=== PATIENT | male | born 1965 | race Caucasian/White ===

== ENCOUNTER 2019-05-02 08:00 | Inpatient (IN) | payer MEDICAID ==
[~2019-05-02] VITALS: Ht 177.8 cm; Wt 83.9 kg
--- NOTE | 2019-05-02 08:15 | NUR ---
Bib by darcy from home (called 911 himself) for worsening sob. EMS reports patient found smoking and with empty 1/2 gallon of hard liquor (Which he drank in the last few hours) ROOM AIR SAT OF 84% - EMS STARTED DUONEB AND PLACED PIV, FSBS 145 ON ARRIVAL REQUIRING 5L NC FOR POX > 92% BREATH SOUNDS COARSE BUT AUDIBLE TO BASES, B/P 80/56
[2019-05-02] MEDS ORDERED: SODIUM CHLORIDE 0.9% 1,000ML IVBOLUS ONE (08:30)
[2019-05-02 08:32] LABS: ALBUMIN 3.5 g/dL (3.4-5.0); ANION GAP 14 mmol/L (5-15); CALCIUM 8.7 mg/dL (8.5-10.1); CHLORIDE 85 mmol/L (98-107); CREATININE 1.47 mg/dL (0.7-1.3)
[2019-05-02 08:36] LABS: BASOPHILS # (AUTO) 0.04 x10^3/uL (0-0.1); BASOPHILS % (AUTO) 1 % (0-1); EOSINOPHILS # (AUTO) 0.02 x10^3/uL (0-0.4); EOSINOPHILS % (AUTO) 0 % (1-7); LYMPHOCYTES # (AUTO) 2.21 x10^3/uL (1-3.4); LYMPHOCYTES % (AUTO) 33 % (22-44); MD NO; MEAN CORPUSCULAR HEMOGLOBIN 33.9 pg (27.5-34.5); MEAN CORPUSCULAR HGB CONC 34.1 g/dL (33.2-36.2); MEAN CORPUSCULAR VOLUME 99.3 fL (81-97); MEAN PLATELET VOLUME 9.5 fL (7.4-10.4); MONOCYTES # (AUTO) 0.63 x10^3/uL (0.2-0.8); MONOCYTES % (AUTO) 9 % (2-9); NEUTROPHILS # (AUTO) 3.82 x10^3/uL (1.8-6.8); NEUTROPHILS % (AUTO) 57 % (42-75); PLATELET COUNT 158 x10^3/uL (130-400); RED BLOOD COUNT 4.12 x10^6/uL (4.38-5.82); RED CELL DISTRIBUTION WIDTH 16.7 % (9.4-14.8)
--- NOTE | 2019-05-02 08:38 | NUR ---
1L NS STARTED FOR B/P, DRY MOUTH
--- NOTE | 2019-05-02 08:51 | NUR ---
B/P IMPROVED TO 100/60 AFTER 1ST LITER OF NS INFUSED MULTIVITAMIN INFUSION AND POTASSIUM REPLETION MEDS ORDERED FROM PHARMACY AT 0851 NOW STARTING TO FEEL ANXIOUS/TREMULOUS " I FEEL LIKE I'M WITHDRAWING ALREADY."-ER PROVIDER MADE AWARE
[2019-05-02] MEDS ORDERED: POTASSIUM CHLORIDE 40 MEQ in SODIUM CHLORIDE 0.9% 500 ML IV ONE (09:00)
[2019-05-02] MEDS ORDERED: PLEASE ENTER ALLERGIES MC SCH (09:00)
[2019-05-02] MEDS ORDERED: PLEASE ENTER HEIGHT AND WEIGHT MC SCH (09:00)
[2019-05-02] MEDS ORDERED: MAGNESIUM SULFATE 1 GM, THIAMINE 100 MG, FOLIC ACID 1 MG, MVI ADULT 10 ML in SODIUM CHL... IV ONE (09:00)
--- NOTE | 2019-05-02 09:20 | NUR ---
multivitamin bag infusion "y'ed in with" potassium infusion after clarification with micomedex and pharmacy that they are compatible Dr. Figueredo (hospitalist) at bedside
[2019-05-02] MEDS ORDERED: CHLORDIAZEPOXIDE 10 MG CAPSULE PO PRN (09:30)
[2019-05-02] MEDS ORDERED: morphine SULFATE 10 MG/ML, 1ML IVPush PRN (09:30)
[2019-05-02] MEDS ORDERED: ENOXAPARIN 40 MG/0.4 ML SQ SCH (09:30)
[2019-05-02] MEDS ORDERED: POTASSIUM CHLORIDE 20 MEQ TAB.ER.PRT PO ONE (09:30)
[2019-05-02] MEDS ORDERED: ACETAMINOPHEN 325 MG TABLET PO PRN (09:30)
[2019-05-02] MEDS ORDERED: CHLORDIAZEPOXIDE 25 MG CAPSULE PO PRN ×3 (09:30)
[2019-05-02] MEDS ORDERED: MAGNESIUM SULFATE PMX 4GM/100M 100 ML IV ONE (09:30)
[2019-05-02] MEDS ORDERED: ALBU1.25 NEB (09:42)
[2019-05-02] MEDS ORDERED: TIOT18CA INH (09:51)
[2019-05-02] MEDS ORDERED: DIGO125T PO (09:51)
[2019-05-02] MEDS ORDERED: MAGN400T9 PO (09:51)
[2019-05-02] MEDS ORDERED: LISI-170 PO (09:51)
[2019-05-02] MEDS ORDERED: OMEP-110 PO (09:51)
[2019-05-02] MEDS ORDERED: TAMS-11 PO (09:51)
[2019-05-02] MEDS ORDERED: FOLI0.8T2 PO (09:51)
[2019-05-02] MEDS ORDERED: HYDROCHLOROTH12.5 MG PO (09:51)
[2019-05-02] MEDS ORDERED: SERT100T PO (09:51)
[2019-05-02] MEDS ORDERED: LEVA15HF4 INH (09:51)
[2019-05-02 10:02] LABS: TROPONIN I < 0.015 ng/mL (0.000-0.045)
[2019-05-02 10:18] VITALS: BP 122/80
[2019-05-02 10:30] LABS: AMPHETAMINE SCREEN, URINE Negative (Negative); BARBITURATE SCREEN, URINE Negative (Negative); BENZODIAZEPINE SCREEN, URINE Negative (Negative); CANNABINOID SCREEN, URINE Negative (Negative); COCAINE SCREEN, URINE Negative (Negative); METHADONE SCREEN, URINE Negative (Negative); OPIATE SCREEN, URINE Negative (Negative)
[2019-05-02] MEDS ORDERED: SODIUM PHOSPHATE 30 MMOL in SODIUM CHLORIDE 0.9% 500 ML IV ONE (11:00)
[2019-05-02 11:14] LABS: MICROSCOPIC INDICATED
[2019-05-02 11:19] LABS: CULTURE INDICATED? NO
[2019-05-02] MEDS ORDERED: ONDANSETRON 2MG/ML, 2ML IVPush PRN (11:30)
[2019-05-02 12:25] VITALS: BP 133/83
[2019-05-02] MEDS: ENOXAPARIN 40 MG/0.4 ML SQ SCH (12:48)
[2019-05-02] MEDS: methylPREDNISolone SOD SUCC 40 MG/ML IV SCH ×2 (12:48→21:03)
[2019-05-02] MEDS: ALBUTEROL/IPRATROPIUM 2.5MG/0.5MG, 3 ML NPPB SCH ×2 (14:40→20:15)
[2019-05-02] MEDS: SODIUM CHLORIDE 0.9% 1,000 ML IV SCH (18:29)
[2019-05-02 19:13] VITALS: BP 146/89
[2019-05-02] MEDS: BUDESONIDE 0.5 MG/2 ML INHA NPPB SCH (20:15)
[2019-05-02 20:22] LABS: AMPHETAMINE SCREEN, URINE Negative (Negative); BARBITURATE SCREEN, URINE Negative (Negative); BENZODIAZEPINE SCREEN, URINE Negative (Negative); CANNABINOID SCREEN, URINE Negative (Negative); COCAINE SCREEN, URINE Negative (Negative); METHADONE SCREEN, URINE Negative (Negative); OPIATE SCREEN, URINE Negative (Negative)
[2019-05-02] MEDS: DOXYCYCLINE 100MG TABLET PO SCH (21:03)
[2019-05-02] MEDS: OMEPRAZOLE 20 MG CAPSULE.DR PO SCH (21:03)
[2019-05-03 01:00] VITALS: BP 124/78
[2019-05-03] MEDS: ALBUTEROL/IPRATROPIUM 2.5MG/0.5MG, 3 ML NPPB SCH ×4 (02:50→21:33)
[2019-05-03] MEDS: SODIUM CHLORIDE 0.9% 1,000 ML IV SCH (03:35)
[2019-05-03] MEDS ORDERED: MAGNESIUM SULFATE PMX 4GM/100M 100 ML IV ONE (04:00)
[2019-05-03 05:05] LABS: BASOPHILS # (AUTO) 0.01 x10^3/uL (0-0.1); BASOPHILS % (AUTO) 0 % (0-1); EOSINOPHILS % (AUTO) 0 % (1-7); LYMPHOCYTES % (AUTO) 11 % (22-44); MD NO; MEAN CORPUSCULAR HEMOGLOBIN 33.1 pg (27.5-34.5); MEAN CORPUSCULAR HGB CONC 33.2 g/dL (33.2-36.2); MEAN CORPUSCULAR VOLUME 99.6 fL (81-97); MEAN PLATELET VOLUME 10.2 fL (7.4-10.4); MONOCYTES # (AUTO) 0.46 x10^3/uL (0.2-0.8); MONOCYTES % (AUTO) 10 % (2-9); NEUTROPHILS # (AUTO) 3.48 x10^3/uL (1.8-6.8); NEUTROPHILS % (AUTO) 78 % (42-75); PLATELET COUNT 108 x10^3/uL (130-400); RED CELL DISTRIBUTION WIDTH 16.8 % (9.4-14.8)
[2019-05-03 05:10] LABS: ANION GAP 9 mmol/L (5-15); CALCIUM 7.9 mg/dL (8.5-10.1); CHLORIDE 100 mmol/L (98-107)
[2019-05-03 05:12] LABS: CREATININE 1.08 mg/dL (0.7-1.3)
[2019-05-03 06:46] VITALS: BP 136/84
[2019-05-03] MEDS ORDERED: POTASSIUM CHLORIDE 20 MEQ TAB.ER.PRT PO ONE ×2 (08:00→11:00)
[2019-05-03] MEDS ORDERED: LORazepam 2 MG/ML, 1ML IV PRN ×4 (08:00)
[2019-05-03] MEDS ORDERED: LORazepam 1MG TABLET PO PRN ×4 (08:00)
[2019-05-03] MEDS: SERTRALINE 100MG TABLET PO SCH (08:39)
[2019-05-03] MEDS: CHLORDIAZEPOXIDE 25 MG CAPSULE PO SCH ×3 (08:39→20:43)
[2019-05-03] MEDS: OMEPRAZOLE 20 MG CAPSULE.DR PO SCH ×2 (08:39→20:42)
[2019-05-03] MEDS: FOLIC ACID 1 MG TABLET PO SCH ×2 (08:39→09:47)
[2019-05-03] MEDS: MULTIVITAMINS/MINERALS TABLET PO SCH (08:40)
[2019-05-03] MEDS: DOXYCYCLINE 100MG TABLET PO SCH ×2 (08:40→20:43)
[2019-05-03] MEDS: THIAMINE 100MG TABLET PO SCH (08:40)
[2019-05-03] MEDS: DIGOXIN 0.125 MG TABLET PO SCH (08:40)
[2019-05-03] MEDS: methylPREDNISolone SOD SUCC 40 MG/ML IV SCH ×4 (08:41→20:42)
[2019-05-03] MEDS: LORazepam 0.5MG TABLET PO PRN ×3 (08:49→20:43)
[2019-05-03] MEDS ORDERED: FOLIC ACID 1 MG TABLET PO SCH (09:00)
[2019-05-03] MEDS: BUDESONIDE 0.5 MG/2 ML INHA NPPB SCH ×2 (09:00→21:33)
[2019-05-03] MEDS: ENOXAPARIN 40 MG/0.4 ML SQ SCH (11:56)
[2019-05-03 12:51] VITALS: BP 149/92
[2019-05-03] MEDS: PANTOPRAZOLE 40 MG IV IVPush SCH (16:06)
[2019-05-03 19:58] VITALS: BP 140/99
[2019-05-04 02:10] VITALS: BP 149/88
[2019-05-04] MEDS: ALBUTEROL/IPRATROPIUM 2.5MG/0.5MG, 3 ML NPPB SCH ×4 (02:27→20:36)
[2019-05-04] MEDS: PANTOPRAZOLE 40 MG IV IVPush SCH ×2 (03:27→14:41)
[2019-05-04] MEDS: methylPREDNISolone SOD SUCC 40 MG/ML IV SCH ×4 (05:00→20:01)
[2019-05-04] MEDS: LORazepam 0.5MG TABLET PO PRN (05:33)
[2019-05-04 07:59] VITALS: BP 160/96
[2019-05-04] MEDS: BUDESONIDE 0.5 MG/2 ML INHA NPPB SCH ×2 (08:28→20:36)
[2019-05-04] MEDS: OMEPRAZOLE 20 MG CAPSULE.DR PO SCH (09:17)
[2019-05-04] MEDS: CHLORDIAZEPOXIDE 25 MG CAPSULE PO SCH ×3 (09:17→20:01)
[2019-05-04] MEDS: THIAMINE 100MG TABLET PO SCH (09:17)
[2019-05-04] MEDS: FOLIC ACID 1 MG TABLET PO SCH (09:17)
[2019-05-04] MEDS: DOXYCYCLINE 100MG TABLET PO SCH ×2 (09:17→20:01)
[2019-05-04] MEDS: DIGOXIN 0.125 MG TABLET PO SCH (09:17)
[2019-05-04] MEDS: MULTIVITAMINS/MINERALS TABLET PO SCH (09:17)
[2019-05-04] MEDS: SERTRALINE 100MG TABLET PO SCH (09:18)
[2019-05-04] MEDS: LORazepam 2 MG/ML, 1ML IV PRN ×3 (11:28→23:49)
[2019-05-04] MEDS: INSULIN LISPRO 100 UNITS/ML, PEN SQ-INSULIN SCH ×3 (12:27→20:08)
[2019-05-04] MEDS: GUAIFENESIN 200 MG TABLET PO SCH ×3 (12:27→20:01)
[2019-05-04] MEDS: ENOXAPARIN 40 MG/0.4 ML SQ SCH (14:36)
[2019-05-04 15:25] VITALS: BP 158/93
[2019-05-04 17:44] LABS: ANION GAP 7 mmol/L (5-15); CALCIUM 7.7 mg/dL (8.5-10.1); CHLORIDE 102 mmol/L (98-107)
[2019-05-04 19:41] VITALS: BP 145/100
[2019-05-04] MEDS ORDERED: MAGNESIUM SULFATE PMX 4GM/100M 100 ML IV ONE (21:30)
[2019-05-04] MEDS ORDERED: SODIUM PHOSPHATE 20 MMOL in SODIUM CHLORIDE 0.9% 500 ML IV ONE (21:30)
[2019-05-04] MEDS ORDERED: CALCIUM CARBONATE 500 MG TABLET PO ONE (21:30)
[2019-05-04] MEDS: NICOTINE 21 MG/24 HR PATCH.TD24 TD SCH (22:51)
[2019-05-05 01:09] VITALS: BP 139/95
[2019-05-05] MEDS: ALBUTEROL/IPRATROPIUM 2.5MG/0.5MG, 3 ML NPPB SCH ×5 (03:00→19:27)
[2019-05-05] MEDS: LORazepam 0.5MG TABLET PO PRN ×4 (03:17→22:51)
[2019-05-05] MEDS: PANTOPRAZOLE 40 MG IV IVPush SCH ×2 (03:17→15:20)
[2019-05-05] MEDS: GUAIFENESIN 200 MG TABLET PO SCH ×4 (04:59→20:18)
[2019-05-05] MEDS: methylPREDNISolone SOD SUCC 40 MG/ML IV SCH ×4 (04:59→22:50)
[2019-05-05 06:17] LABS: ALBUMIN 2.6 g/dL (3.4-5.0); ANION GAP 3 mmol/L (5-15); CALCIUM 7.4 mg/dL (8.5-10.1); CHLORIDE 102 mmol/L (98-107)
[2019-05-05 06:18] LABS: MEAN CORPUSCULAR HEMOGLOBIN 33.5 pg (27.5-34.5); MEAN CORPUSCULAR HGB CONC 33.4 g/dL (33.2-36.2); RED BLOOD COUNT 3.24 x10^6/uL (4.38-5.82)
[2019-05-05 06:23] LABS: ALANINE AMINOTRANSFERASE 77 U/L (12-78); ALKALINE PHOSPHATASE 103 U/L (45-117); BILIRUBIN,TOTAL 0.3 mg/dL (0.2-1.0); CREATININE 0.72 mg/dL (0.7-1.3); TOTAL PROTEIN 5.3 g/dL (6.4-8.2)
[2019-05-05 06:42] LABS: MEAN PLATELET VOLUME 10.7 fL (7.4-10.4)
[2019-05-05 06:43] LABS: MD YES; PLATELET COUNT 84 x10^3/uL (130-400)
[2019-05-05 06:44] LABS: BAND#(MANUAL) 0.13 x10^3/uL; BANDS%(MANUAL) 1 % (0-7); LYMPH#(MANUAL) 1.56 x10^3/uL (1-3.4); LYMPHS% (MANUAL) 12 % (22-44); MONOS#(MANUAL) 0.13 x10^3/uL (0.3-2.7); MONOS% (MANUAL) 1 % (2-9); SEG#(MANUAL) 11.18 x10^3/uL (1.8-6.8); SEGS% (MANUAL) 86 % (42-75)
[2019-05-05 06:45] LABS: <PLATELET ESTIMATE> DECREASED; ANISOCYTOSIS 1+; LARGE PLATELETS 1+
[2019-05-05 07:29] VITALS: BP 144/100
[2019-05-05] MEDS ORDERED: MAGNESIUM SULFATE PMX 2GM/50ML 50 ML IV ONE (08:00)
[2019-05-05] MEDS: INSULIN LISPRO 100 UNITS/ML, PEN SQ-INSULIN SCH ×4 (08:08→20:20)
[2019-05-05] MEDS ORDERED: POTASSIUM PHOSPHATE 44 MEQ in SODIUM CHLORIDE 0.9% 500 ML IV ONE (09:00)
[2019-05-05] MEDS: BUDESONIDE 0.5 MG/2 ML INHA NPPB SCH ×2 (09:00→19:27)
[2019-05-05] MEDS ORDERED: LEVA1.2524 NEB (09:56)
[2019-05-05] MEDS ORDERED: NICO-487 TD (09:56)
[2019-05-05] MEDS ORDERED: MULT1TAB77 PO (09:56)
[2019-05-05] MEDS ORDERED: BUDE10.2 INH (09:56)
[2019-05-05] MEDS ORDERED: FOLI-17 PO (09:56)
[2019-05-05] MEDS ORDERED: TIOT4MIS5 INH (09:56)
[2019-05-05] MEDS ORDERED: THIA100T67 PO (09:56)
[2019-05-05] MEDS: DOXYCYCLINE 100MG TABLET PO SCH ×2 (09:58→20:18)
[2019-05-05] MEDS: THIAMINE 100MG TABLET PO SCH (09:58)
[2019-05-05] MEDS: SERTRALINE 100MG TABLET PO SCH (09:58)
[2019-05-05] MEDS: MULTIVITAMINS/MINERALS TABLET PO SCH (09:58)
[2019-05-05] MEDS: DIGOXIN 0.125 MG TABLET PO SCH (09:59)
[2019-05-05] MEDS: MAGNESIUM CHLORIDE 64 MG TABLET.DR PO SCH ×2 (09:59→20:18)
[2019-05-05] MEDS: CHLORDIAZEPOXIDE 25 MG CAPSULE PO SCH ×2 (09:59→20:19)
[2019-05-05] MEDS: FOLIC ACID 1 MG TABLET PO SCH (09:59)
[2019-05-05 13:21] VITALS: BP 144/93
[2019-05-05] MEDS: ENOXAPARIN 40 MG/0.4 ML SQ SCH (15:20)
[2019-05-05 19:57] VITALS: BP 146/65
[2019-05-05] MEDS: NICOTINE 21 MG/24 HR PATCH.TD24 TD SCH (22:50)
[2019-05-06 01:02] VITALS: BP 130/82
[2019-05-06] MEDS: ALBUTEROL/IPRATROPIUM 2.5MG/0.5MG, 3 ML NPPB SCH ×4 (02:58→19:21)
[2019-05-06] MEDS: PANTOPRAZOLE 40 MG IV IVPush SCH ×2 (03:40→14:58)
[2019-05-06 05:37] LABS: MEAN CORPUSCULAR HEMOGLOBIN 33.6 pg (27.5-34.5); MEAN CORPUSCULAR HGB CONC 33.2 g/dL (33.2-36.2); MEAN CORPUSCULAR VOLUME 101.3 fL (81-97); RED BLOOD COUNT 3.25 x10^6/uL (4.38-5.82); RED CELL DISTRIBUTION WIDTH 17.4 % (9.4-14.8)
[2019-05-06 05:38] LABS: CHLORIDE 102 mmol/L (98-107)
[2019-05-06 05:42] LABS: ANION GAP 5 mmol/L (5-15); CREATININE 0.76 mg/dL (0.7-1.3)
[2019-05-06 06:08] LABS: MEAN PLATELET VOLUME 10.4 fL (7.4-10.4); PLATELET COUNT 77 x10^3/uL (130-400)
[2019-05-06 06:09] LABS: BASOPHILS # (AUTO) 0.01 x10^3/uL (0-0.1); BASOPHILS % (AUTO) 0 % (0-1); EOSINOPHILS % (AUTO) 0 % (1-7); LYMPHOCYTES # (AUTO) 0.82 x10^3/uL (1-3.4); LYMPHOCYTES % (AUTO) 8 % (22-44); MD SCAN; MONOCYTES # (AUTO) 0.49 x10^3/uL (0.2-0.8); MONOCYTES % (AUTO) 5 % (2-9); NEUTROPHILS # (AUTO) 9.31 x10^3/uL (1.8-6.8); NEUTROPHILS % (AUTO) 88 % (42-75)
[2019-05-06] MEDS ORDERED: methylPREDNISolone SOD SUCC 125 MG/2 ML ONE (06:16)
[2019-05-06] MEDS: GUAIFENESIN 200 MG TABLET PO SCH ×4 (06:37→21:10)
[2019-05-06] MEDS: methylPREDNISolone SOD SUCC 40 MG/ML IV SCH ×4 (06:37→21:09)
[2019-05-06 07:44] VITALS: BP 140/95
[2019-05-06] MEDS: INSULIN LISPRO 100 UNITS/ML, PEN SQ-INSULIN SCH ×4 (07:50→21:09)
[2019-05-06] MEDS: BUDESONIDE 0.5 MG/2 ML INHA NPPB SCH ×2 (09:00→19:21)
[2019-05-06] MEDS: MAGNESIUM CHLORIDE 64 MG TABLET.DR PO SCH ×2 (09:31→21:10)
[2019-05-06] MEDS: DIGOXIN 0.125 MG TABLET PO SCH (09:31)
[2019-05-06] MEDS: MULTIVITAMINS/MINERALS TABLET PO SCH (09:32)
[2019-05-06] MEDS: DOXYCYCLINE 100MG TABLET PO SCH ×2 (09:32→21:10)
[2019-05-06] MEDS: CHLORDIAZEPOXIDE 25 MG CAPSULE PO SCH (09:32)
[2019-05-06] MEDS: FOLIC ACID 1 MG TABLET PO SCH (09:32)
[2019-05-06] MEDS: THIAMINE 100MG TABLET PO SCH (09:32)
[2019-05-06] MEDS: SERTRALINE 100MG TABLET PO SCH (09:32)
[2019-05-06] MEDS: LORazepam 0.5MG TABLET PO PRN ×2 (11:41→21:10)
[2019-05-06 11:56] VITALS: BP 152/104
[2019-05-06 12:50] VITALS: BP 142/96
[2019-05-06] MEDS: ENOXAPARIN 40 MG/0.4 ML SQ SCH (14:58)
[2019-05-06] MEDS ORDERED: MAGNESIUM SULFATE PMX 2GM/50ML 50 ML IV ONE (19:30)
[2019-05-06 20:17] VITALS: BP 138/94
[2019-05-06] MEDS: NICOTINE 21 MG/24 HR PATCH.TD24 TD SCH (21:11)
[2019-05-07 01:25] VITALS: BP 126/75
[2019-05-07] MEDS: ALBUTEROL/IPRATROPIUM 2.5MG/0.5MG, 3 ML NPPB SCH ×3 (02:23→15:00)
[2019-05-07] MEDS: PANTOPRAZOLE 40 MG IV IVPush SCH ×2 (02:34→15:04)
[2019-05-07 05:30] LABS: MEAN CORPUSCULAR HEMOGLOBIN 33.5 pg (27.5-34.5); MEAN CORPUSCULAR HGB CONC 33.2 g/dL (33.2-36.2); MEAN CORPUSCULAR VOLUME 101.1 fL (81-97); RED CELL DISTRIBUTION WIDTH 16.9 % (9.4-14.8)
[2019-05-07] MEDS: GUAIFENESIN 200 MG TABLET PO SCH ×3 (05:34→16:11)
[2019-05-07] MEDS: methylPREDNISolone SOD SUCC 40 MG/ML IV SCH ×3 (05:34→16:06)
[2019-05-07 05:42] LABS: ANION GAP 3 mmol/L (5-15); CALCIUM 8.1 mg/dL (8.5-10.1); CHLORIDE 102 mmol/L (98-107); CREATININE 0.72 mg/dL (0.7-1.3)
[2019-05-07 07:43] LABS: MEAN PLATELET VOLUME 10.3 fL (7.4-10.4); PLATELET COUNT 91 x10^3/uL (130-400)
[2019-05-07 07:46] LABS: BASOPHILS # (AUTO) 0.01 x10^3/uL (0-0.1); BASOPHILS % (AUTO) 0 % (0-1); EOSINOPHILS % (AUTO) 0 % (1-7); LYMPHOCYTES # (AUTO) 0.94 x10^3/uL (1-3.4); LYMPHOCYTES % (AUTO) 10 % (22-44); MD MORPH REVIEW ONLY; MONOCYTES # (AUTO) 0.71 x10^3/uL (0.2-0.8); MONOCYTES % (AUTO) 8 % (2-9); NEUTROPHILS # (AUTO) 7.83 x10^3/uL (1.8-6.8); NEUTROPHILS % (AUTO) 82 % (42-75)
[2019-05-07 07:47] LABS: <PLATELET ESTIMATE> DECREASED; ANISOCYTOSIS 1+; POLYCHROMASIA 1+
[2019-05-07 07:48] LABS: LARGE PLATELETS 1+
[2019-05-07 07:49] VITALS: BP 146/93
[2019-05-07] MEDS: INSULIN LISPRO 100 UNITS/ML, PEN SQ-INSULIN SCH ×3 (08:09→16:10)
[2019-05-07] MEDS: BUDESONIDE 0.5 MG/2 ML INHA NPPB SCH (08:20)
[2019-05-07] MEDS ORDERED: MAGNESIUM SULFATE PMX 2GM/50ML 50 ML IV ONE (08:30)
[2019-05-07] MEDS: MULTIVITAMINS/MINERALS TABLET PO SCH (08:56)
[2019-05-07] MEDS: MAGNESIUM CHLORIDE 64 MG TABLET.DR PO SCH (08:56)
[2019-05-07] MEDS: DOXYCYCLINE 100MG TABLET PO SCH (08:56)
[2019-05-07] MEDS: THIAMINE 100MG TABLET PO SCH (08:56)
[2019-05-07] MEDS: SERTRALINE 100MG TABLET PO SCH (08:56)
[2019-05-07] MEDS: FOLIC ACID 1 MG TABLET PO SCH (08:57)
[2019-05-07] MEDS: DIGOXIN 0.125 MG TABLET PO SCH (08:57)
[2019-05-07] MEDS: LORazepam 0.5MG TABLET PO PRN (09:08)
[2019-05-07] MEDS ORDERED: MULT-484 PO (12:45)
[2019-05-07] MEDS ORDERED: PRED5TAB PO (12:45)
[2019-05-07] MEDS ORDERED: GUAI200T37 PO (12:45)
[2019-05-07] MEDS ORDERED: ALBU1.25 NEB ×2 (12:45)
[2019-05-07] MEDS ORDERED: BUDE10.2 INH (12:45)
[2019-05-07] MEDS ORDERED: TIOT4MIS5 INH (12:45)
[2019-05-07] MEDS ORDERED: DOXY100T23 PO (12:45)
[2019-05-07] MEDS ORDERED: OMEP-110 PO (12:45)
[2019-05-07 15:09] VITALS: BP 122/80
[2019-05-07] MEDS: ENOXAPARIN 40 MG/0.4 ML SQ SCH (16:12)
[2019-05-07] MEDS ORDERED: IPRA3AMP30 NPPB ×3 (16:46→16:47)
== END 2019-05-07 16:58 | disposition home or self-care (01) | DRG 189 ==
LOC: ED 09:06 → EDIP 09:21 → 4WST 10:16 → DCLOUNGE 05-07 16:51
PROVIDERS: ADMIT Internal Medicine Infectious Disease; ATTEND Internal Medicine
DX: J96.21 Acute and chronic respiratory failure with hypoxia (principal); N17.0 Acute kidney failure with tubular necrosis; E87.1 Hypo-osmolality and hyponatremia; F10.239 Alcohol dependence with withdrawal, unspecified; J44.1 Chronic obstructive pulmonary disease with (acute) exacerbation; E83.39 Other disorders of phosphorus metabolism; E83.42 Hypomagnesemia; E86.0 Dehydration; E86.1 Hypovolemia; E87.6 Hypokalemia; F10.229 Alcohol dependence with intoxication, unspecified; Y90.9 Presence of alcohol in blood, level not specified; F17.200 Nicotine dependence, unspecified, uncomplicated; I10 Essential (primary) hypertension; I27.20 Pulmonary hypertension, unspecified; J06.9 Acute upper respiratory infection, unspecified; K44.9 Diaphragmatic hernia without obstruction or gangrene; Y90.7 Blood alcohol level of 200-239 mg/100 ml; Z91.030 Bee allergy status
CPT/HCPCS: 36415; 84145; 96361; 96374; 99285; J7620; J7626; 71045; 71250; 80048; 80053; 80162; 80307; 81001; 82040; 82550; 82962; 83036; 83735; 83880; 84100; 84484; 85025; 87070; 87205; 87633; 93005; 93306; 94640; G0378; J1650; J2405; J3411; J3475; J3480; C9113; J1815; J2060; J2920; J7030; J7040; Q0177

== ENCOUNTER 2019-07-01 17:06 | Inpatient (IN) | payer MEDICAID ==
[~2019-07-01] VITALS: Ht 177.8 cm; Wt 73.5 kg
[~2019-07-01 17:06] MED LIST: ALBU1.25 NEB; BUDE10.2 INH; DIGO125T85 PO; DOXY100T23 PO; FOLI-17 PO; FOLI0.8T2 PO; GUAI200T37 PO; HYDROCHLOROTH12.5 MG PO; IPRA3AMP30 NPPB; LEVA1.2524 NEB; LEVA15HF4 INH; LISI-170 PO; MAGN400T9 PO; MULT-484 PO; MULT1TAB77 PO; NICO-487 TD; OMEP-110 PO; PRED5TAB PO; SERT100T PO; TAMS-11 PO; THIA100T67 PO; TIOT18CA INH; TIOT4MIS5 INH
--- NOTE | 2019-07-01 17:25 | NUR ---
PT BIB BY JARRED. PT CO OF FACIAL SWELLING ON RIGHT SIDE OF HIS FACE AND YELLOW CRUSTY SKIN. PT DENIES HX OF SHINGLES. DENIES ALLERGIES. ADMITS TO DRINKING A HALF OF [place] OF [place] TODAY. PT IS RESTING IN [facility] CONNECTED TO MARKETING CONTENT COORDINATOR
--- NOTE | 2019-07-01 17:54 | NUR ---
PT IS YELLING "HELLO!" AND "HEY!". THIS RN ASKED PATIENT IF HE WAS OK AND HE DROPPED THE TV REMOTE. PT HAS CALL LIGHT IN HAND NOW
[2019-07-01] MEDS ORDERED: VANCOMYCIN PER PHARMACY MC ONE (18:30)
[2019-07-01] MEDS ORDERED: SODIUM CHLORIDE 0.9% 1,000ML IVBOLUS ONE (18:30)
[2019-07-01] MEDS ORDERED: PROPARACAINE OPHTH 0.5%, 15ML EACHEYE ONE (18:30)
[2019-07-01] MEDS ORDERED: FLUORESCEIN OPHTHALMIC 1 MG STRIP EACHEYE ONE (18:30)
[2019-07-01] MEDS ORDERED: PROPARACAINE OPHTH 0.5%, 15ML ONE (18:33)
[2019-07-01] MEDS ORDERED: ACYCLOVIR 800 MG TABLET PO ONE (18:45)
[2019-07-01] MEDS ORDERED: VANCOMYCIN 1,700 MG in SODIUM CHLORIDE 0.9% 250 ML IV ONE (19:00)
[2019-07-01] MEDS ORDERED: FLUORESCEIN OPHTHALMIC 1 MG STRIP ONE (19:22)
[2019-07-01 19:24] LABS: ALBUMIN 4.2 g/dL (3.4-5.0); ANION GAP 16 mmol/L (5-15); CALCIUM 9.7 mg/dL (8.5-10.1); CHLORIDE 96 mmol/L (98-107)
[2019-07-01 19:25] LABS: BASOPHILS # (AUTO) 0.02 x10^3/uL (0-0.1); BASOPHILS % (AUTO) 0 % (0-1); EOSINOPHILS % (AUTO) 0 % (1-7); LYMPHOCYTES # (AUTO) 1.01 x10^3/uL (1-3.4); LYMPHOCYTES % (AUTO) 11 % (22-44); MD NO; MEAN CORPUSCULAR HEMOGLOBIN 31.2 pg (27.5-34.5); MEAN CORPUSCULAR HGB CONC 33.5 g/dL (33.2-36.2); MEAN CORPUSCULAR VOLUME 93.2 fL (81-97); MEAN PLATELET VOLUME 10.4 fL (7.4-10.4); MONOCYTES # (AUTO) 0.45 x10^3/uL (0.2-0.8); MONOCYTES % (AUTO) 5 % (2-9); NEUTROPHILS # (AUTO) 7.41 x10^3/uL (1.8-6.8); NEUTROPHILS % (AUTO) 83 % (42-75); PLATELET COUNT 207 x10^3/uL (130-400); RED BLOOD COUNT 5.22 x10^6/uL (4.38-5.82); RED CELL DISTRIBUTION WIDTH 13.6 % (9.4-14.8)
[2019-07-01 19:27] LABS: CREATININE 0.97 mg/dL (0.7-1.3)
[2019-07-01 19:28] LABS: ALANINE AMINOTRANSFERASE 65 U/L (12-78); ALKALINE PHOSPHATASE 115 U/L (45-117); BILIRUBIN,TOTAL 0.3 mg/dL (0.2-1.0); TOTAL PROTEIN 8.8 g/dL (6.4-8.2)
[2019-07-01] MEDS ORDERED: POTASSIUM CHLORIDE 20 MEQ, MAGNESIUM SULFATE 1 GM, MVI ADULT 10 ML, THIAMINE 200 MG, FO... IV SCH (20:00)
[2019-07-01] MEDS ORDERED: AMPICILLIN/SULBACTAM 3 GM in SODIUM CHLORIDE 0.9% 100 ML IV ONE (20:00)
--- NOTE | 2019-07-01 21:05 | NUR ---
PT BACK FROM CT. IV ABX INFUSING. PT WATCHING TV. NO NEEDS AT THIS TIME
[2019-07-01] MEDS ORDERED: OMNIPAQUE 350 MG/ML, 75ML BOTTLE ONE (21:11)
[2019-07-01] MEDS ORDERED: ACYCLOVIR IV SCH (22:00)
[2019-07-01] MEDS ORDERED: SODIUM CHLORIDE 0.9% IV SCH (22:00)
[2019-07-01] MEDS ORDERED: SODIUM CHLORIDE 0.9% 1,000 ML IV SCH (22:06)
[2019-07-01] MEDS ORDERED: VANCOMYCIN PER PHARMACY MC PRN (22:30)
[2019-07-01] MEDS ORDERED: BISACODYL 10 MG SUPP PR PRN (22:30)
[2019-07-01] MEDS: AMPICILLIN/SULBACTAM 3 GM in SODIUM CHLORIDE 0.9% 100 ML IV SCH (22:30)
[2019-07-01] MEDS ORDERED: hydrALAzine 20 MG/ML, 1ML IVPush PRN (22:30)
[2019-07-01] MEDS ORDERED: CHLORDIAZEPOXIDE 25 MG CAPSULE PO PRN (22:30)
[2019-07-01] MEDS ORDERED: ONDANSETRON ODT 4 MG PO PRN (22:30)
[2019-07-01] MEDS ORDERED: POLYETHYLENE GLYCOL 17 GM PACKET PO PRN (22:30)
[2019-07-01] MEDS ORDERED: PHARMACOKINETIC CONSULTATION MC ONE (23:00)
[2019-07-01] MEDS ORDERED: PHARMACOKINETIC MONITORING MC PRN (23:00)
[2019-07-01] MEDS ORDERED: BUDESONIDE 0.5 MG/2 ML INHA NPPB SCH (23:00)
[2019-07-01] MEDS ORDERED: ALBUTEROL/IPRATROPIUM 2.5MG/0.5MG, 3 ML NPPB SCH (23:00)
[2019-07-01 23:07] VITALS: BP 173/123
[2019-07-01] MEDS ORDERED: OMEPRAZOLE 20 MG CAPSULE.DR ONE (23:15)
[2019-07-01] MEDS: LORazepam 2 MG/ML, 1ML IVPush PRN (23:25)
[2019-07-01] MEDS: VALACYCLOVIR 500MG TABLET PO SCH (23:25)
[2019-07-01] MEDS: NICOTINE 14MG/24 HR PATCH.TD24 TD SCH (23:26)
[2019-07-01] MEDS: HEPARIN 5,000 UNITS/ML, 1ML SQ SCH (23:26)
[2019-07-01] MEDS ORDERED: OMEPRAZOLE 20 MG CAPSULE.DR PO SCH (23:30)
[2019-07-02] MEDS ORDERED: ALBUTEROL/IPRATROPIUM 2.5MG/0.5MG, 3 ML NPPB PRN
[2019-07-02] MEDS: ACETAMINOPHEN 325 MG TABLET PO PRN ×2 (00:16→04:34)
[2019-07-02 00:28] VITALS: BP 143/82
[2019-07-02] MEDS: AMPICILLIN/SULBACTAM 3 GM in SODIUM CHLORIDE 0.9% 100 ML IV SCH ×4 (03:36→22:10)
[2019-07-02] MEDS: VALACYCLOVIR 500MG TABLET PO SCH ×3 (06:29→22:10)
[2019-07-02] MEDS: HEPARIN 5,000 UNITS/ML, 1ML SQ SCH ×3 (06:29→22:11)
[2019-07-02 06:31] LABS: ANION GAP 14 mmol/L (5-15); CALCIUM 8.5 mg/dL (8.5-10.1); CHLORIDE 100 mmol/L (98-107); CREATININE 0.71 mg/dL (0.7-1.3)
[2019-07-02 06:37] LABS: BASOPHILS # (AUTO) 0.03 x10^3/uL (0-0.1); BASOPHILS % (AUTO) 0 % (0-1); EOSINOPHILS % (AUTO) 0 % (1-7); LYMPHOCYTES # (AUTO) 1.28 x10^3/uL (1-3.4); LYMPHOCYTES % (AUTO) 17 % (22-44); MD NO; MEAN CORPUSCULAR HGB CONC 33.2 g/dL (33.2-36.2); MEAN CORPUSCULAR VOLUME 93.4 fL (81-97); MEAN PLATELET VOLUME 10.7 fL (7.4-10.4); MONOCYTES # (AUTO) 1.09 x10^3/uL (0.2-0.8); MONOCYTES % (AUTO) 15 % (2-9); NEUTROPHILS # (AUTO) 5.16 x10^3/uL (1.8-6.8); NEUTROPHILS % (AUTO) 68 % (42-75); PLATELET COUNT 161 x10^3/uL (130-400); RED BLOOD COUNT 4.38 x10^6/uL (4.38-5.82); RED CELL DISTRIBUTION WIDTH 13.8 % (9.4-14.8)
[2019-07-02 08:52] VITALS: BP 148/104
[2019-07-02] MEDS: VANCOMYCIN 1,300 MG in SODIUM CHLORIDE 0.9% 250 ML IV SCH ×2 (08:53→20:10)
[2019-07-02] MEDS: FOLIC ACID 1 MG TABLET PO SCH (08:53)
[2019-07-02] MEDS: SERTRALINE 100MG TABLET PO SCH (08:54)
[2019-07-02] MEDS: SENNA/DOCUSATE TABLET PO SCH (08:54)
[2019-07-02] MEDS: MAGNESIUM OXIDE 400 MG TABLET PO SCH (08:54)
[2019-07-02] MEDS: LISINOPRIL 10 MG TABLET PO SCH (08:54)
[2019-07-02] MEDS: THIAMINE 100MG TABLET PO SCH ×2 (08:54→20:08)
[2019-07-02] MEDS: TAMSULOSIN 0.4 MG CAP.ER.24H PO SCH (08:54)
[2019-07-02] MEDS: MULTIVITAMINS/MINERALS TABLET PO SCH (08:55)
[2019-07-02] MEDS: HYDROCHLOROTHIAZIDE 12.5 MG CAPSULE PO SCH (08:55)
[2019-07-02] MEDS: OMEPRAZOLE 20 MG CAPSULE.DR PO SCH (08:55)
[2019-07-02] MEDS: DIGOXIN 0.125 MG TABLET PO SCH (08:55)
[2019-07-02] MEDS: ALBUTEROL/IPRATROPIUM 2.5MG/0.5MG, 3 ML NPPB SCH ×3 (09:00→21:45)
[2019-07-02] MEDS: BUDESONIDE 0.5 MG/2 ML INHA NPPB SCH ×2 (09:00→21:45)
[2019-07-02] MEDS: LORazepam 2 MG/ML, 1ML IVPush PRN ×2 (09:07→13:48)
[2019-07-02] MEDS ORDERED: SODIUM CHLORIDE 0.9% 1,000 ML IV SCH ×2 (11:30→22:06)
[2019-07-02] MEDS: OXYcodone 5 MG/5 ML ORAL.SOL UDC PO PRN ×2 (12:02→20:07)
[2019-07-02 13:05] VITALS: BP 134/77
[2019-07-02 15:32] LABS: TROPONIN I < 0.015 ng/mL (0.000-0.045)
[2019-07-02] MEDS ORDERED: OMNIPAQUE 350 MG/ML, 75ML BOTTLE ONE (16:06)
[2019-07-02] MEDS ORDERED: MAGNESIUM SULFATE PMX 2GM/50ML 50 ML IV ONE (16:30)
[2019-07-02 18:53] VITALS: BP 127/76
[2019-07-02 21:48] LABS: TROPONIN I < 0.015 ng/mL (0.000-0.045)
[2019-07-02] MEDS: NICOTINE 14MG/24 HR PATCH.TD24 TD SCH (22:12)
[2019-07-03 00:53] VITALS: BP 137/85
[2019-07-03] MEDS: AMPICILLIN/SULBACTAM 3 GM in SODIUM CHLORIDE 0.9% 100 ML IV SCH ×4 (03:27→22:03)
[2019-07-03] MEDS: OXYcodone 5 MG/5 ML ORAL.SOL UDC PO PRN ×3 (03:28→20:30)
[2019-07-03 04:18] LABS: BASOPHILS # (AUTO) 0.02 x10^3/uL (0-0.1); BASOPHILS % (AUTO) 0 % (0-1); EOSINOPHILS # (AUTO) 0.01 x10^3/uL (0-0.4); EOSINOPHILS % (AUTO) 0 % (1-7); LYMPHOCYTES # (AUTO) 1.14 x10^3/uL (1-3.4); LYMPHOCYTES % (AUTO) 16 % (22-44); MD NO; MEAN CORPUSCULAR HEMOGLOBIN 30.7 pg (27.5-34.5); MEAN CORPUSCULAR HGB CONC 33.1 g/dL (33.2-36.2); MEAN CORPUSCULAR VOLUME 92.6 fL (81-97); MEAN PLATELET VOLUME 10.2 fL (7.4-10.4); MONOCYTES # (AUTO) 0.59 x10^3/uL (0.2-0.8); MONOCYTES % (AUTO) 9 % (2-9); NEUTROPHILS % (AUTO) 75 % (42-75); PLATELET COUNT 114 x10^3/uL (130-400); RED BLOOD COUNT 3.85 x10^6/uL (4.38-5.82); RED CELL DISTRIBUTION WIDTH 13.4 % (9.4-14.8)
[2019-07-03 04:39] LABS: ANION GAP 11 mmol/L (5-15); CALCIUM 8.5 mg/dL (8.5-10.1); CHLORIDE 96 mmol/L (98-107); CREATININE 0.64 mg/dL (0.7-1.3)
[2019-07-03] MEDS: ACETAMINOPHEN 325 MG TABLET PO PRN (06:04)
[2019-07-03] MEDS: VALACYCLOVIR 500MG TABLET PO SCH ×3 (06:04→21:29)
[2019-07-03] MEDS: HEPARIN 5,000 UNITS/ML, 1ML SQ SCH ×3 (06:04→21:29)
[2019-07-03] MEDS: BUDESONIDE 0.5 MG/2 ML INHA NPPB SCH ×2 (07:09→21:00)
[2019-07-03] MEDS: ALBUTEROL/IPRATROPIUM 2.5MG/0.5MG, 3 ML NPPB SCH ×3 (07:09→21:00)
[2019-07-03 07:41] VITALS: BP 133/83
[2019-07-03] MEDS: VANCOMYCIN 1,300 MG in SODIUM CHLORIDE 0.9% 250 ML IV SCH ×2 (07:42→20:30)
[2019-07-03] MEDS: THIAMINE 100MG TABLET PO SCH ×2 (07:43→20:30)
[2019-07-03] MEDS: OMEPRAZOLE 20 MG CAPSULE.DR PO SCH (07:43)
[2019-07-03] MEDS: MAGNESIUM OXIDE 400 MG TABLET PO SCH (07:43)
[2019-07-03] MEDS: LISINOPRIL 10 MG TABLET PO SCH (07:43)
[2019-07-03] MEDS: SERTRALINE 100MG TABLET PO SCH (07:43)
[2019-07-03] MEDS: HYDROCHLOROTHIAZIDE 12.5 MG CAPSULE PO SCH (07:44)
[2019-07-03] MEDS: FOLIC ACID 1 MG TABLET PO SCH (07:44)
[2019-07-03] MEDS: TAMSULOSIN 0.4 MG CAP.ER.24H PO SCH (07:44)
[2019-07-03] MEDS: MULTIVITAMINS/MINERALS TABLET PO SCH (07:44)
[2019-07-03] MEDS: DIGOXIN 0.125 MG TABLET PO SCH (07:45)
[2019-07-03] MEDS: SENNA/DOCUSATE TABLET PO SCH (07:45)
[2019-07-03] MEDS ORDERED: SODIUM PHOSPHATE 20 MMOL in SODIUM CHLORIDE 0.9% 500 ML IV ONE (08:00)
[2019-07-03] MEDS ORDERED: MAGNESIUM SULFATE PMX 2GM/50ML 50 ML IV ONE (08:00)
[2019-07-03] MEDS ORDERED: POTASSIUM CHLORIDE 20 MEQ TAB.ER.PRT PO ONE (08:00)
[2019-07-03] MEDS: SODIUM CHLORIDE 0.9% 1,000 ML IV SCH ×2 (11:45→18:49)
[2019-07-03 12:14] LABS: AMPHETAMINE SCREEN, URINE Negative (Negative); BARBITURATE SCREEN, URINE Negative (Negative); BENZODIAZEPINE SCREEN, URINE Negative (Negative); CANNABINOID SCREEN, URINE Negative (Negative); COCAINE SCREEN, URINE Negative (Negative); METHADONE SCREEN, URINE Negative (Negative); OPIATE SCREEN, URINE Negative (Negative); SODIUM,URINE RANDOM 93 mmol/L
[2019-07-03 13:00] LABS: OSMOLALITY,URINE 247 mOsm/kg (500-850)
[2019-07-03 14:16] VITALS: BP 130/83
[2019-07-03 19:56] LABS: ANION GAP 8 mmol/L (5-15); CALCIUM 9.1 mg/dL (8.5-10.1); CHLORIDE 97 mmol/L (98-107); CREATININE 0.64 mg/dL (0.7-1.3)
[2019-07-03 20:05] LABS: VANCOMYCIN,TROUGH 10.1 mcg/mL (5.0-10.0)
[2019-07-03 20:22] VITALS: BP 133/91
[2019-07-03 20:28] LABS: FREE T4 (FREE THYROXINE) 1.14 ng/dL (0.76-1.46)
[2019-07-03] MEDS: NICOTINE 14MG/24 HR PATCH.TD24 TD SCH (21:29)
[2019-07-03] MEDS: TEMAZEPAM 15 MG CAPSULE PO PRN (21:29)
[2019-07-04] MEDS: ALBUTEROL/IPRATROPIUM 2.5MG/0.5MG, 3 ML NPPB SCH ×5 (03:00→20:27)
[2019-07-04] MEDS: AMPICILLIN/SULBACTAM 3 GM in SODIUM CHLORIDE 0.9% 100 ML IV SCH ×4 (03:38→21:06)
[2019-07-04 03:39] VITALS: BP 143/96
[2019-07-04] MEDS: VALACYCLOVIR 500MG TABLET PO SCH ×3 (05:49→22:28)
[2019-07-04] MEDS: HEPARIN 5,000 UNITS/ML, 1ML SQ SCH ×3 (05:50→22:28)
[2019-07-04] MEDS: OXYcodone 5 MG/5 ML ORAL.SOL UDC PO PRN ×3 (05:50→20:41)
[2019-07-04 06:13] LABS: BASOPHILS # (AUTO) 0.03 x10^3/uL (0-0.1); BASOPHILS % (AUTO) 1 % (0-1); EOSINOPHILS # (AUTO) 0.06 x10^3/uL (0-0.4); EOSINOPHILS % (AUTO) 1 % (1-7); LYMPHOCYTES # (AUTO) 2.15 x10^3/uL (1-3.4); LYMPHOCYTES % (AUTO) 34 % (22-44); MD NO; MEAN CORPUSCULAR HEMOGLOBIN 30.9 pg (27.5-34.5); MEAN CORPUSCULAR HGB CONC 33.4 g/dL (33.2-36.2); MEAN CORPUSCULAR VOLUME 92.4 fL (81-97); MEAN PLATELET VOLUME 11.7 fL (7.4-10.4); MONOCYTES # (AUTO) 0.51 x10^3/uL (0.2-0.8); MONOCYTES % (AUTO) 8 % (2-9); NEUTROPHILS # (AUTO) 3.61 x10^3/uL (1.8-6.8); NEUTROPHILS % (AUTO) 57 % (42-75); PLATELET COUNT 118 x10^3/uL (130-400); RED BLOOD COUNT 4.01 x10^6/uL (4.38-5.82); RED CELL DISTRIBUTION WIDTH 13.3 % (9.4-14.8)
[2019-07-04 06:23] LABS: ALBUMIN 2.7 g/dL (3.4-5.0); ANION GAP 11 mmol/L (5-15); CALCIUM 8.9 mg/dL (8.5-10.1); CHLORIDE 96 mmol/L (98-107)
[2019-07-04 06:26] LABS: ALANINE AMINOTRANSFERASE 49 U/L (12-78); ALKALINE PHOSPHATASE 79 U/L (45-117); BILIRUBIN,TOTAL 0.7 mg/dL (0.2-1.0); CREATININE 0.58 mg/dL (0.7-1.3); TOTAL PROTEIN 6.2 g/dL (6.4-8.2)
[2019-07-04 07:28] VITALS: BP 145/104
[2019-07-04] MEDS: VANCOMYCIN 1,300 MG in SODIUM CHLORIDE 0.9% 250 ML IV SCH (07:48)
[2019-07-04] MEDS: MAGNESIUM OXIDE 400 MG TABLET PO SCH (07:49)
[2019-07-04] MEDS: DIGOXIN 0.125 MG TABLET PO SCH (07:49)
[2019-07-04] MEDS: TAMSULOSIN 0.4 MG CAP.ER.24H PO SCH (07:49)
[2019-07-04] MEDS: FOLIC ACID 1 MG TABLET PO SCH (07:49)
[2019-07-04] MEDS: HYDROCHLOROTHIAZIDE 12.5 MG CAPSULE PO SCH (07:50)
[2019-07-04] MEDS: LISINOPRIL 10 MG TABLET PO SCH (07:50)
[2019-07-04] MEDS: SERTRALINE 100MG TABLET PO SCH (07:50)
[2019-07-04] MEDS: OMEPRAZOLE 20 MG CAPSULE.DR PO SCH (07:50)
[2019-07-04] MEDS: MULTIVITAMINS/MINERALS TABLET PO SCH (07:50)
[2019-07-04] MEDS: SENNA/DOCUSATE TABLET PO SCH (07:51)
[2019-07-04] MEDS: THIAMINE 100MG TABLET PO SCH ×2 (07:52→20:42)
[2019-07-04] MEDS: BUDESONIDE 0.5 MG/2 ML INHA NPPB SCH ×2 (09:00→20:27)
[2019-07-04] MEDS: ACETAMINOPHEN 325 MG TABLET PO PRN ×2 (09:52→14:44)
[2019-07-04] MEDS: GABAPENTIN 300 MG CAPSULE PO SCH ×3 (10:17→20:40)
[2019-07-04] MEDS: ERYTHROMYCIN OPHTH 0.5%, 1GM EACHEYE SCH ×3 (11:00→20:40)
[2019-07-04] MEDS ORDERED: MAGNESIUM SULFATE PMX 2GM/50ML 50 ML IV ONE (14:30)
[2019-07-04 14:57] VITALS: BP 109/75
[2019-07-04] MEDS: VANCOMYCIN 1,500 MG in SODIUM CHLORIDE 0.9% 250 ML IV SCH (18:27)
[2019-07-04] MEDS: POTASSIUM CHLORIDE 20 MEQ TAB.ER.PRT PO SCH (18:29)
[2019-07-04 18:45] VITALS: BP 112/74
[2019-07-04] MEDS: TEMAZEPAM 15 MG CAPSULE PO PRN (20:40)
[2019-07-04] MEDS: NICOTINE 14MG/24 HR PATCH.TD24 TD SCH (20:42)
[2019-07-05 00:56] VITALS: BP 136/91
[2019-07-05] MEDS: AMPICILLIN/SULBACTAM 3 GM in SODIUM CHLORIDE 0.9% 100 ML IV SCH ×4 (02:51→21:52)
[2019-07-05] MEDS: ALBUTEROL/IPRATROPIUM 2.5MG/0.5MG, 3 ML NPPB SCH ×4 (03:00→19:14)
[2019-07-05] MEDS: VANCOMYCIN 1,500 MG in SODIUM CHLORIDE 0.9% 250 ML IV SCH (06:02)
[2019-07-05] MEDS: HEPARIN 5,000 UNITS/ML, 1ML SQ SCH ×3 (06:02→21:40)
[2019-07-05] MEDS: VALACYCLOVIR 500MG TABLET PO SCH ×3 (06:02→21:39)
[2019-07-05] MEDS: ERYTHROMYCIN OPHTH 0.5%, 1GM EACHEYE SCH ×4 (06:03→21:39)
[2019-07-05 06:21] LABS: ANION GAP 7 mmol/L (5-15); CALCIUM 8.5 mg/dL (8.5-10.1); CHLORIDE 98 mmol/L (98-107); CREATININE 0.63 mg/dL (0.7-1.3)
[2019-07-05] MEDS: POTASSIUM CHLORIDE 20 MEQ TAB.ER.PRT PO SCH ×3 (08:00→17:08)
[2019-07-05] MEDS: MAGNESIUM OXIDE 400 MG TABLET PO SCH (08:02)
[2019-07-05] MEDS: SERTRALINE 100MG TABLET PO SCH (08:02)
[2019-07-05] MEDS: MULTIVITAMINS/MINERALS TABLET PO SCH (08:02)
[2019-07-05] MEDS: TAMSULOSIN 0.4 MG CAP.ER.24H PO SCH (08:03)
[2019-07-05] MEDS: DIGOXIN 0.125 MG TABLET PO SCH (08:03)
[2019-07-05] MEDS: OMEPRAZOLE 20 MG CAPSULE.DR PO SCH (08:03)
[2019-07-05] MEDS: GABAPENTIN 300 MG CAPSULE PO SCH ×3 (08:03→21:38)
[2019-07-05] MEDS: THIAMINE 100MG TABLET PO SCH ×2 (08:04→21:00)
[2019-07-05] MEDS: FOLIC ACID 1 MG TABLET PO SCH (08:04)
[2019-07-05] MEDS: LISINOPRIL 10 MG TABLET PO SCH (08:04)
[2019-07-05] MEDS: SENNA/DOCUSATE TABLET PO SCH (08:08)
[2019-07-05 08:39] VITALS: BP 128/91
[2019-07-05] MEDS: BUDESONIDE 0.5 MG/2 ML INHA NPPB SCH ×2 (10:00→19:14)
[2019-07-05] MEDS ORDERED: MAGNESIUM SULFATE 3 GM in SODIUM CHLORIDE 0.9% 100 ML IV ONE (10:30)
[2019-07-05] MEDS: OXYcodone 5 MG/5 ML ORAL.SOL UDC PO PRN ×2 (11:47→18:32)
[2019-07-05 13:39] VITALS: BP 128/91
[2019-07-05 18:27] VITALS: BP 129/88
[2019-07-05] MEDS: NICOTINE 14MG/24 HR PATCH.TD24 TD SCH (21:39)
[2019-07-05] MEDS: TEMAZEPAM 15 MG CAPSULE PO PRN (22:03)
[2019-07-06 00:51] VITALS: BP 136/87
[2019-07-06] MEDS: AMPICILLIN/SULBACTAM 3 GM in SODIUM CHLORIDE 0.9% 100 ML IV SCH ×4 (04:11→21:30)
[2019-07-06] MEDS: OXYcodone 5 MG/5 ML ORAL.SOL UDC PO PRN ×3 (04:11→21:27)
[2019-07-06] MEDS: ACETAMINOPHEN 325 MG TABLET PO PRN (04:19)
[2019-07-06 05:44] LABS: BASOPHILS # (AUTO) 0.03 x10^3/uL (0-0.1); BASOPHILS % (AUTO) 1 % (0-1); EOSINOPHILS # (AUTO) 0.18 x10^3/uL (0-0.4); EOSINOPHILS % (AUTO) 3 % (1-7); LYMPHOCYTES # (AUTO) 2.12 x10^3/uL (1-3.4); LYMPHOCYTES % (AUTO) 37 % (22-44); MD NO; MEAN CORPUSCULAR HEMOGLOBIN 31.4 pg (27.5-34.5); MEAN CORPUSCULAR HGB CONC 33.9 g/dL (33.2-36.2); MEAN CORPUSCULAR VOLUME 92.6 fL (81-97); MEAN PLATELET VOLUME 11.1 fL (7.4-10.4); MONOCYTES # (AUTO) 0.62 x10^3/uL (0.2-0.8); MONOCYTES % (AUTO) 11 % (2-9); NEUTROPHILS % (AUTO) 49 % (42-75); PLATELET COUNT 116 x10^3/uL (130-400); RED BLOOD COUNT 3.45 x10^6/uL (4.38-5.82); RED CELL DISTRIBUTION WIDTH 13.3 % (9.4-14.8)
[2019-07-06 05:52] LABS: ANION GAP 4 mmol/L (5-15); CALCIUM 8.7 mg/dL (8.5-10.1); CHLORIDE 100 mmol/L (98-107); CREATININE 0.59 mg/dL (0.7-1.3)
[2019-07-06] MEDS: HEPARIN 5,000 UNITS/ML, 1ML SQ SCH ×3 (06:28→20:57)
[2019-07-06] MEDS: ERYTHROMYCIN OPHTH 0.5%, 1GM EACHEYE SCH ×4 (06:28→20:57)
[2019-07-06] MEDS: VALACYCLOVIR 500MG TABLET PO SCH ×3 (06:28→20:56)
[2019-07-06 07:36] VITALS: BP 154/100
[2019-07-06] MEDS ORDERED: POTASSIUM CHLORIDE 20 MEQ TAB.ER.PRT PO ONE (08:30)
[2019-07-06] MEDS: THIAMINE 100MG TABLET PO SCH ×2 (09:00→20:57)
[2019-07-06] MEDS: SENNA/DOCUSATE TABLET PO SCH (09:00)
[2019-07-06] MEDS: ALBUTEROL/IPRATROPIUM 2.5MG/0.5MG, 3 ML NPPB SCH ×2 (09:20→21:00)
[2019-07-06] MEDS: BUDESONIDE 0.5 MG/2 ML INHA NPPB SCH ×2 (09:20→21:00)
[2019-07-06] MEDS: DIGOXIN 0.125 MG TABLET PO SCH (10:06)
[2019-07-06] MEDS: OMEPRAZOLE 20 MG CAPSULE.DR PO SCH (10:06)
[2019-07-06] MEDS: SERTRALINE 100MG TABLET PO SCH (10:07)
[2019-07-06] MEDS: MAGNESIUM OXIDE 400 MG TABLET PO SCH (10:07)
[2019-07-06] MEDS: GABAPENTIN 300 MG CAPSULE PO SCH ×3 (10:07→20:57)
[2019-07-06] MEDS: FOLIC ACID 1 MG TABLET PO SCH (10:07)
[2019-07-06] MEDS: MULTIVITAMINS/MINERALS TABLET PO SCH (10:07)
[2019-07-06] MEDS: LISINOPRIL 10 MG TABLET PO SCH (10:07)
[2019-07-06] MEDS: TAMSULOSIN 0.4 MG CAP.ER.24H PO SCH (10:20)
[2019-07-06 13:55] VITALS: BP 118/78
[2019-07-06] MEDS: HYDROCHLOROTHIAZIDE 12.5 MG CAPSULE PO SCH (14:14)
[2019-07-06 18:11] VITALS: BP 135/90
[2019-07-06] MEDS: NICOTINE 14MG/24 HR PATCH.TD24 TD SCH (20:56)
[2019-07-07 00:41] VITALS: BP 123/82
[2019-07-07] MEDS: AMPICILLIN/SULBACTAM 3 GM in SODIUM CHLORIDE 0.9% 100 ML IV SCH ×4 (04:07→21:35)
[2019-07-07] MEDS: ERYTHROMYCIN OPHTH 0.5%, 1GM EACHEYE SCH ×4 (06:16→21:04)
[2019-07-07] MEDS: HEPARIN 5,000 UNITS/ML, 1ML SQ SCH ×3 (06:16→21:05)
[2019-07-07] MEDS: VALACYCLOVIR 500MG TABLET PO SCH ×3 (06:16→21:04)
[2019-07-07 06:24] LABS: BASOPHILS # (AUTO) 0.04 x10^3/uL (0-0.1); BASOPHILS % (AUTO) 1 % (0-1); EOSINOPHILS % (AUTO) 3 % (1-7); LYMPHOCYTES # (AUTO) 2.09 x10^3/uL (1-3.4); LYMPHOCYTES % (AUTO) 33 % (22-44); MD NO; MEAN CORPUSCULAR HEMOGLOBIN 30.8 pg (27.5-34.5); MEAN CORPUSCULAR HGB CONC 32.9 g/dL (33.2-36.2); MEAN CORPUSCULAR VOLUME 93.8 fL (81-97); MONOCYTES # (AUTO) 0.69 x10^3/uL (0.2-0.8); MONOCYTES % (AUTO) 11 % (2-9); NEUTROPHILS # (AUTO) 3.28 x10^3/uL (1.8-6.8); NEUTROPHILS % (AUTO) 52 % (42-75); PLATELET COUNT 159 x10^3/uL (130-400); RED BLOOD COUNT 3.73 x10^6/uL (4.38-5.82); RED CELL DISTRIBUTION WIDTH 13.3 % (9.4-14.8)
[2019-07-07 06:33] LABS: ANION GAP 6 mmol/L (5-15); CALCIUM 8.8 mg/dL (8.5-10.1); CHLORIDE 98 mmol/L (98-107); CREATININE 0.64 mg/dL (0.7-1.3)
[2019-07-07 07:01] VITALS: BP 142/99
[2019-07-07] MEDS: TAMSULOSIN 0.4 MG CAP.ER.24H PO SCH (08:10)
[2019-07-07] MEDS: MULTIVITAMINS/MINERALS TABLET PO SCH (08:10)
[2019-07-07] MEDS: GABAPENTIN 300 MG CAPSULE PO SCH ×3 (08:10→21:04)
[2019-07-07] MEDS: FOLIC ACID 1 MG TABLET PO SCH (08:10)
[2019-07-07] MEDS: THIAMINE 100MG TABLET PO SCH ×2 (08:10→21:04)
[2019-07-07] MEDS: SERTRALINE 100MG TABLET PO SCH (08:11)
[2019-07-07] MEDS: MAGNESIUM OXIDE 400 MG TABLET PO SCH (08:11)
[2019-07-07] MEDS: OMEPRAZOLE 20 MG CAPSULE.DR PO SCH (08:11)
[2019-07-07] MEDS: HYDROCHLOROTHIAZIDE 12.5 MG CAPSULE PO SCH (08:11)
[2019-07-07] MEDS: SENNA/DOCUSATE TABLET PO SCH (08:12)
[2019-07-07] MEDS: LISINOPRIL 10 MG TABLET PO SCH (08:12)
[2019-07-07] MEDS: OXYcodone 5 MG/5 ML ORAL.SOL UDC PO PRN (08:25)
[2019-07-07] MEDS ORDERED: POTASSIUM CHLORIDE 20 MEQ TAB.ER.PRT PO ONE (08:30)
[2019-07-07] MEDS: ALBUTEROL/IPRATROPIUM 2.5MG/0.5MG, 3 ML NPPB SCH ×2 (09:10→20:41)
[2019-07-07] MEDS: BUDESONIDE 0.5 MG/2 ML INHA NPPB SCH ×2 (09:10→20:41)
[2019-07-07] MEDS ORDERED: MAGNESIUM SULFATE PMX 2GM/50ML 50 ML IV ONE (11:30)
[2019-07-07 13:19] VITALS: BP 135/85
[2019-07-07] MEDS ORDERED: OXYcodone 5 MG/5 ML ORAL.SOL UDC PO PRN (15:00)
[2019-07-07] MEDS: ACETAMINOPHEN 325 MG TABLET PO PRN (17:32)
[2019-07-07 19:01] VITALS: BP 138/69
[2019-07-07] MEDS: NICOTINE 14MG/24 HR PATCH.TD24 TD SCH (21:04)
[2019-07-08 01:08] VITALS: BP 136/68
[2019-07-08] MEDS: AMPICILLIN/SULBACTAM 3 GM in SODIUM CHLORIDE 0.9% 100 ML IV SCH ×2 (03:53→09:58)
[2019-07-08 05:01] LABS: BASOPHILS # (AUTO) 0.03 x10^3/uL (0-0.1); BASOPHILS % (AUTO) 0 % (0-1); EOSINOPHILS # (AUTO) 0.14 x10^3/uL (0-0.4); EOSINOPHILS % (AUTO) 2 % (1-7); LYMPHOCYTES # (AUTO) 2.39 x10^3/uL (1-3.4); LYMPHOCYTES % (AUTO) 34 % (22-44); MD NO; MEAN CORPUSCULAR HGB CONC 32.6 g/dL (33.2-36.2); MEAN PLATELET VOLUME 10.6 fL (7.4-10.4); MONOCYTES # (AUTO) 0.74 x10^3/uL (0.2-0.8); MONOCYTES % (AUTO) 11 % (2-9); NEUTROPHILS # (AUTO) 3.69 x10^3/uL (1.8-6.8); NEUTROPHILS % (AUTO) 53 % (42-75); PLATELET COUNT 161 x10^3/uL (130-400); RED BLOOD COUNT 3.71 x10^6/uL (4.38-5.82); RED CELL DISTRIBUTION WIDTH 13.9 % (9.4-14.8)
[2019-07-08 05:12] LABS: ANION GAP 4 mmol/L (5-15); CALCIUM 8.9 mg/dL (8.5-10.1); CHLORIDE 100 mmol/L (98-107)
[2019-07-08 05:14] LABS: CREATININE 0.88 mg/dL (0.7-1.3)
[2019-07-08] MEDS: ERYTHROMYCIN OPHTH 0.5%, 1GM EACHEYE SCH ×2 (06:06→11:35)
[2019-07-08] MEDS: VALACYCLOVIR 500MG TABLET PO SCH (06:06)
[2019-07-08] MEDS: HEPARIN 5,000 UNITS/ML, 1ML SQ SCH (06:06)
[2019-07-08 07:08] VITALS: BP 128/77
[2019-07-08] MEDS: ALBUTEROL/IPRATROPIUM 2.5MG/0.5MG, 3 ML NPPB SCH (08:40)
[2019-07-08] MEDS: BUDESONIDE 0.5 MG/2 ML INHA NPPB SCH (08:40)
[2019-07-08] MEDS: SENNA/DOCUSATE TABLET PO SCH (09:00)
[2019-07-08] MEDS: THIAMINE 100MG TABLET PO SCH (09:00)
[2019-07-08] MEDS: LISINOPRIL 10 MG TABLET PO SCH (09:08)
[2019-07-08] MEDS: MAGNESIUM OXIDE 400 MG TABLET PO SCH (09:09)
[2019-07-08] MEDS: GABAPENTIN 300 MG CAPSULE PO SCH (09:09)
[2019-07-08] MEDS: SERTRALINE 100MG TABLET PO SCH (09:09)
[2019-07-08] MEDS: OMEPRAZOLE 20 MG CAPSULE.DR PO SCH (09:09)
[2019-07-08] MEDS: MULTIVITAMINS/MINERALS TABLET PO SCH (09:10)
[2019-07-08] MEDS: TAMSULOSIN 0.4 MG CAP.ER.24H PO SCH (09:10)
[2019-07-08] MEDS: HYDROCHLOROTHIAZIDE 12.5 MG CAPSULE PO SCH (09:10)
[2019-07-08] MEDS: FOLIC ACID 1 MG TABLET PO SCH (09:58)
[2019-07-08] MEDS: ACETAMINOPHEN 325 MG TABLET PO PRN (10:07)
[2019-07-08] MEDS ORDERED: ERYT1OIN5 EACHEYE (11:46)
[2019-07-08] MEDS ORDERED: AMOX1TAB64 PO (11:46)
[2019-07-08] MEDS ORDERED: VALA500T8 PO (11:46)
[2019-07-08] MEDS ORDERED: GABA300C10 PO (11:46)
[2019-07-08 13:13] VITALS: BP 152/96
== END 2019-07-08 14:14 | disposition home or self-care (01) | DRG 871 ==
LOC: ED 19:29 → EDIP 22:07 → 4WST 22:51 → 3N 07-05 16:03
PROVIDERS: ADMIT Family Medicine; ATTEND Family Medicine
DX: A41.9 Sepsis, unspecified organism (principal); E43 Unspecified severe protein-calorie malnutrition; E87.1 Hypo-osmolality and hyponatremia; F10.239 Alcohol dependence with withdrawal, unspecified; J96.10 Chronic respiratory failure, unspecified whether with hypoxia or hypercapnia; L03.211 Cellulitis of face; L03.213 Periorbital cellulitis; B02.9 Zoster without complications; E83.42 Hypomagnesemia; E87.6 Hypokalemia; F17.210 Nicotine dependence, cigarettes, uncomplicated; F32.9 Major depressive disorder, single episode, unspecified; I27.20 Pulmonary hypertension, unspecified; I48.91 Unspecified atrial fibrillation; Z66 Do not resuscitate; L01.00 Impetigo, unspecified; H10.31 Unspecified acute conjunctivitis, right eye; J44.9 Chronic obstructive pulmonary disease, unspecified; K20.9 Esophagitis, unspecified; I10 Essential (primary) hypertension; Z59.0 Homelessness; Z79.899 Other long term (current) drug therapy; Z79.51 Long term (current) use of inhaled steroids
CPT/HCPCS: 36415; 84145; 87806; 96361; 96365; 96366; 96375; 99285; J7626; 70487; 71260; 80048; 80053; 80162; 80202; 80307; 82533; 83605; 83735; 83930; 83935; 84100; 84300; 84439; 84443; 84481; 84484; 85025; 87040; 87081; 93005; 94640; G0378; J0295; J1644; J3370; J3475; Q0162; Q9967; G0475; J0360; J2060; J7030; J7040; J7050

== ENCOUNTER 2019-08-05 16:18 | Emergency (ER) | payer MEDICAID ==
[~2019-08-05] VITALS: Ht 177.8 cm; Wt 79.5 kg
[~2019-08-05 16:18] MED LIST changes: +AMOX1TAB64 PO; +ERYT1OIN5 EACHEYE; +GABA300C10 PO; +VALA500T8 PO
--- NOTE | 2019-08-05 16:38 | NUR ---
PT ARRIVED VIA EMS. PER EMS, A PHONE CALL WAS MADE THAT STATED THE PT WANTED TO "JUMP OFF A BUILDING AND KILL HIMSELF". PER PT, HE IS NOT SUICIDAL AND HAS NO PLANS TO KILL HIMSELF. PT STATES HE DOES NOT KNOW WHO CALLED 911. PT DOES ADMIT TO HEAVY ETOH USE AND DRINKS EVERY DAY WITH HIS LAST DRINK BEING BEFORE EMS ARRIVED. PT IS A GCS OF 15. NO DISTRESS AT THIS TIME. PT USES HOME O2 ON 4L. PLACED PT ON O2 4L.
[2019-08-05 17:06] LABS: ALANINE AMINOTRANSFERASE 81 U/L (12-78); ALBUMIN 3.8 g/dL (3.4-5.0); ANION GAP 9 mmol/L (5-15); CALCIUM 8.7 mg/dL (8.5-10.1); CHLORIDE 102 mmol/L (98-107); SALICYLATE LEVEL 3.8 mg/dL (2.8-20.0)
[2019-08-05 17:08] LABS: ALKALINE PHOSPHATASE 126 U/L (45-117); BILIRUBIN,TOTAL 0.4 mg/dL (0.2-1.0); TOTAL PROTEIN 8.1 g/dL (6.4-8.2)
[2019-08-05 17:08] LABS: MICROSCOPIC AUTO
[2019-08-05 17:18] LABS: AMPHETAMINE SCREEN, URINE Negative (Negative); BARBITURATE SCREEN, URINE Negative (Negative); BENZODIAZEPINE SCREEN, URINE Negative (Negative); CANNABINOID SCREEN, URINE Positive (Negative); COCAINE SCREEN, URINE Negative (Negative); CULTURE INDICATED? NO; METHADONE SCREEN, URINE Negative (Negative); OPIATE SCREEN, URINE Negative (Negative)
[2019-08-05 17:28] LABS: BASOPHILS # (AUTO) 0.02 x10^3/uL (0-0.1); BASOPHILS % (AUTO) 0 % (0-1); EOSINOPHILS # (AUTO) 0.04 x10^3/uL (0-0.4); EOSINOPHILS % (AUTO) 1 % (1-7); LYMPHOCYTES # (AUTO) 2.36 x10^3/uL (1-3.4); LYMPHOCYTES % (AUTO) 41 % (22-44); MD SCAN; MEAN CORPUSCULAR HEMOGLOBIN 30.6 pg (27.5-34.5); MEAN CORPUSCULAR HGB CONC 33.3 g/dL (33.2-36.2); MEAN PLATELET VOLUME 9.7 fL (7.4-10.4); MONOCYTES # (AUTO) 0.46 x10^3/uL (0.2-0.8); MONOCYTES % (AUTO) 8 % (2-9); NEUTROPHILS # (AUTO) 2.88 x10^3/uL (1.8-6.8); NEUTROPHILS % (AUTO) 50 % (42-75); PLATELET COUNT 164 x10^3/uL (130-400); RED BLOOD COUNT 4.48 x10^6/uL (4.38-5.82); RED CELL DISTRIBUTION WIDTH 17.6 % (9.4-14.8)
--- NOTE | 2019-08-05 18:14 | NUR ---
PT RESTING COMFORTABLY. PT STATES THAT HE DOES NOT WANT TO WAIT TO SOBER UP AND SPEAK TO PSYCH TELEMEDICINE AND THAT HE WANTS TO GO HOME NOW. PT GCS 15 NO DISTRESS AT THIS TIME. MD AWARE, DISCUSSED WITH MD. AWAITING FUTHER DISPOSITION.
[2019-08-05 18:21] VITALS: BP 134/82
--- NOTE | 2019-08-05 18:53 | NUR ---
DC PAPERS REVIEWED WITH PT. CAB CALLED AND PT WHEELED WITH O2 TANK TO WHITE TENT TO WAIT FOR TAXI. PT GCS 15 NOT IN ANY DISTRESS AT THIS TIME.
== END 2019-08-05 18:56 | disposition home or self-care (01) ==
LOC: ED 16:34
DX: G31.2 Degeneration of nervous system due to alcohol (principal); I10 Essential (primary) hypertension; F32.9 Major depressive disorder, single episode, unspecified; J44.9 Chronic obstructive pulmonary disease, unspecified
CPT/HCPCS: 36415; 71045; 80053; 80307; 81001; 85025; 99284

== ENCOUNTER 2019-08-09 12:08 | Inpatient (IN) | payer MEDICAID ==
[~2019-08-09] VITALS: Ht 177.8 cm; Wt 70.2 kg
--- NOTE | 2019-08-09 12:34 | NUR ---
EKG DONE BY THIS TECH
--- NOTE | 2019-08-09 12:55 | NUR ---
PT CAME IN CO "BEING TOTALLY DRUNK AND MY COPD IS ACTING UP". PT USUALLY WEARS 4 LITERS ALL THE TIME AND IS CURRENTLY 100% ON HIS NORMAL 4 LITERS. MD IS BEDSIDE FOR ASSESSMENT. CALL LIGHT WITHIN REACH
[2019-08-09 13:16] LABS: BASOPHILS # (AUTO) 0.06 x10^3/uL (0-0.1); BASOPHILS % (AUTO) 1 % (0-1); EOSINOPHILS % (AUTO) 0 % (1-7); LYMPHOCYTES # (AUTO) 1.95 x10^3/uL (1-3.4); LYMPHOCYTES % (AUTO) 34 % (22-44); MD NO; MEAN CORPUSCULAR HEMOGLOBIN 30.3 pg (27.5-34.5); MEAN CORPUSCULAR HGB CONC 33.2 g/dL (33.2-36.2); MEAN CORPUSCULAR VOLUME 91.4 fL (81-97); MEAN PLATELET VOLUME 10.2 fL (7.4-10.4); MONOCYTES # (AUTO) 0.39 x10^3/uL (0.2-0.8); MONOCYTES % (AUTO) 7 % (2-9); NEUTROPHILS # (AUTO) 3.31 x10^3/uL (1.8-6.8); NEUTROPHILS % (AUTO) 58 % (42-75); PLATELET COUNT 148 x10^3/uL (130-400); RED BLOOD COUNT 4.92 x10^6/uL (4.38-5.82); RED CELL DISTRIBUTION WIDTH 18.2 % (9.4-14.8)
[2019-08-09 13:26] LABS: ANION GAP 11 mmol/L (5-15); CALCIUM 9.2 mg/dL (8.5-10.1); CHLORIDE 95 mmol/L (98-107)
[2019-08-09 13:32] LABS: ALANINE AMINOTRANSFERASE 71 U/L (12-78); ALKALINE PHOSPHATASE 149 U/L (45-117); BILIRUBIN,TOTAL 0.4 mg/dL (0.2-1.0); CREATININE 0.82 mg/dL (0.7-1.3); TOTAL PROTEIN 8.5 g/dL (6.4-8.2); TROPONIN I < 0.015 ng/mL (0.000-0.045)
[2019-08-09] MEDS ORDERED: PROMETHAZINE 25 MG/ML, 1ML ONE (13:59)
[2019-08-09] MEDS ORDERED: POTASSIUM CHLORIDE 20 MEQ TAB.ER.PRT PO ONE ×2 (14:00→16:00)
[2019-08-09] MEDS ORDERED: PROMETHAZINE 25 MG/ML, 1ML IM ONE (14:00)
--- NOTE | 2019-08-09 14:05 | NUR ---
PT CO OF NAUSEA. MD NOTIFIED. MEDICATED PER JUN
[2019-08-09] MEDS ORDERED: POTASSIUM CHLORIDE 20 MEQ TAB.ER.PRT ONE (14:28)
--- NOTE | 2019-08-09 14:34 | NUR ---
PT CO OF NAUSEA. SEE MAR FOR INTERVETIONS
[2019-08-09] MEDS ORDERED: FAMOTIDINE 20 MG/2 ML ONE (15:22)
[2019-08-09] MEDS ORDERED: POTASSIUM CHLORIDE 40 MEQ in SODIUM CHLORIDE 0.9% 500 ML IV ONE (15:30)
[2019-08-09] MEDS ORDERED: FAMOTIDINE 20 MG/2 ML IVPush ONE (15:30)
[2019-08-09] MEDS ORDERED: LORazepam 2 MG/ML, 1ML IV PRN ×2 (16:00)
[2019-08-09] MEDS ORDERED: ACETAMINOPHEN 325 MG TABLET PO PRN (16:00)
--- NOTE | 2019-08-09 16:12 | NUR ---
REPORT TO MEHRAN LINDSEY. ALL QUESTIONS ANSWERED.
[2019-08-09] MEDS ORDERED: ALBUTEROL/IPRATROPIUM 2.5MG/0.5MG, 3 ML ONE (16:57)
[2019-08-09] MEDS ORDERED: IPRATROPIUM 0.5 MG/2.5 ML INHA NPPB SCH (17:00)
[2019-08-09] MEDS: ALBUTEROL/IPRATROPIUM 2.5MG/0.5MG, 3 ML NPPB SCH (17:06)
[2019-08-09 17:17] VITALS: BP 138/99
[2019-08-09] MEDS: LORazepam 2 MG/ML, 1ML IV PRN ×2 (17:52→22:39)
[2019-08-09] MEDS: methylPREDNISolone SOD SUCC 40 MG/ML IVPush SCH (17:53)
[2019-08-09] MEDS: ENOXAPARIN 40 MG/0.4 ML SQ SCH (17:55)
[2019-08-09] MEDS: ONDANSETRON 2MG/ML, 2ML IVPush PRN (17:55)
[2019-08-09 18:49] LABS: AMPHETAMINE SCREEN, URINE Negative (Negative); BARBITURATE SCREEN, URINE Negative (Negative); BENZODIAZEPINE SCREEN, URINE Negative (Negative); CANNABINOID SCREEN, URINE Positive (Negative); COCAINE SCREEN, URINE Negative (Negative); METHADONE SCREEN, URINE Negative (Negative); OPIATE SCREEN, URINE Negative (Negative)
[2019-08-09 18:57] VITALS: BP 133/92
[2019-08-09] MEDS: POTASSIUM CHLORIDE 20 MEQ, MAGNESIUM SULFATE 2 GM, THIAMINE 200 MG, MVI ADULT 10 ML, FO... IV SCH (20:13)
[2019-08-09] MEDS: FAMOTIDINE 20 MG TABLET PO SCH (20:13)
[2019-08-09] MEDS: SODIUM CHLORIDE 0.9% 1,000 ML IV SCH (20:22)
[2019-08-09] MEDS: TEMPLATE NON-FORMULARY MED. (Budesonide/Formoterol Fumarate (Symbicort 160-4.5 Mcg Inhaler INH SCH (20:23)
[2019-08-09] MEDS: BUDESONIDE 0.5 MG/2 ML INHA INH SCH (21:00)
[2019-08-09 22:35] VITALS: BP 153/101
[2019-08-09 23:50] VITALS: BP 148/97
[2019-08-10 01:16] VITALS: BP 141/92
[2019-08-10 02:40] VITALS: BP 159/101
[2019-08-10] MEDS: LORazepam 2 MG/ML, 1ML IV PRN ×4 (02:55→20:29)
[2019-08-10] MEDS: ALBUTEROL/IPRATROPIUM 2.5MG/0.5MG, 3 ML NPPB SCH ×4 (03:00→19:39)
[2019-08-10] MEDS: SODIUM CHLORIDE 0.9% 1,000 ML IV SCH (03:02)
[2019-08-10 04:41] VITALS: BP 148/96
[2019-08-10] MEDS: POTASSIUM CHLORIDE 20 MEQ, MAGNESIUM SULFATE 2 GM, THIAMINE 200 MG, MVI ADULT 10 ML, FO... IV SCH (05:00)
[2019-08-10 05:36] LABS: ANION GAP 5 mmol/L (5-15); CHLORIDE 102 mmol/L (98-107); CREATININE 0.87 mg/dL (0.7-1.3)
[2019-08-10] MEDS: methylPREDNISolone SOD SUCC 40 MG/ML IVPush SCH ×3 (05:52→20:29)
[2019-08-10 08:00] VITALS: BP 154/105
[2019-08-10] MEDS: BUDESONIDE 0.5 MG/2 ML INHA INH SCH ×2 (08:52→19:39)
[2019-08-10] MEDS: TEMPLATE NON-FORMULARY MED. (Budesonide/Formoterol Fumarate (Symbicort 160-4.5 Mcg Inhaler INH SCH (09:00)
[2019-08-10] MEDS: FAMOTIDINE 20 MG TABLET PO SCH ×2 (09:08→20:29)
[2019-08-10] MEDS: LISINOPRIL 10 MG TABLET PO SCH (09:08)
[2019-08-10] MEDS: ONDANSETRON 2MG/ML, 2ML IVPush PRN (09:08)
[2019-08-10] MEDS: TAMSULOSIN 0.4 MG CAP.ER.24H PO SCH (09:08)
[2019-08-10] MEDS: HYDROCHLOROTHIAZIDE 12.5 MG CAPSULE PO SCH (09:09)
[2019-08-10] MEDS: SERTRALINE 100MG TABLET PO SCH (09:09)
[2019-08-10 12:52] VITALS: BP 143/95
[2019-08-10] MEDS: MAGNESIUM SULFATE 2 GM, THIAMINE 200 MG, MVI ADULT 10 ML, FOLIC ACID 1 MG in D5%-0.9% N... IV SCH (15:51)
[2019-08-10] MEDS: ENOXAPARIN 40 MG/0.4 ML SQ SCH (17:15)
[2019-08-10 18:49] VITALS: BP 124/86
[2019-08-11] MEDS: LORazepam 2 MG/ML, 1ML IV PRN ×4 (00:34→20:33)
[2019-08-11 01:31] VITALS: BP 142/89
[2019-08-11] MEDS: ALBUTEROL/IPRATROPIUM 2.5MG/0.5MG, 3 ML NPPB SCH ×4 (02:24→19:55)
[2019-08-11 06:44] VITALS: BP 150/99
[2019-08-11] MEDS: SERTRALINE 100MG TABLET PO SCH (07:29)
[2019-08-11] MEDS: methylPREDNISolone SOD SUCC 40 MG/ML IVPush SCH ×2 (07:29→20:22)
[2019-08-11] MEDS: TAMSULOSIN 0.4 MG CAP.ER.24H PO SCH (07:30)
[2019-08-11] MEDS: LISINOPRIL 10 MG TABLET PO SCH (07:30)
[2019-08-11] MEDS: FAMOTIDINE 20 MG TABLET PO SCH ×2 (07:30→20:22)
[2019-08-11] MEDS: HYDROCHLOROTHIAZIDE 12.5 MG CAPSULE PO SCH (07:30)
[2019-08-11] MEDS: BUDESONIDE 0.5 MG/2 ML INHA INH SCH ×2 (08:05→19:55)
[2019-08-11 09:32] LABS: ALANINE AMINOTRANSFERASE 63 U/L (12-78); ALBUMIN 3.4 g/dL (3.4-5.0); ANION GAP 7 mmol/L (5-15); CHLORIDE 100 mmol/L (98-107); CREATININE 0.69 mg/dL (0.7-1.3)
[2019-08-11 09:34] LABS: ALKALINE PHOSPHATASE 130 U/L (45-117); BILIRUBIN,TOTAL 0.9 mg/dL (0.2-1.0); TOTAL PROTEIN 7.2 g/dL (6.4-8.2)
[2019-08-11 12:27] VITALS: BP 138/93
[2019-08-11] MEDS: ALUMINUM/MAG/SIMETHICONE 30 ML UDC PO PRN ×3 (13:15→23:50)
[2019-08-11] MEDS: ENOXAPARIN 40 MG/0.4 ML SQ SCH (18:20)
[2019-08-11] MEDS: MAGNESIUM SULFATE 2 GM, THIAMINE 200 MG, MVI ADULT 10 ML, FOLIC ACID 1 MG in D5%-0.9% N... IV SCH (18:29)
[2019-08-11 18:57] VITALS: BP 131/88
[2019-08-12 00:56] VITALS: BP 145/98
[2019-08-12] MEDS: ALBUTEROL/IPRATROPIUM 2.5MG/0.5MG, 3 ML NPPB SCH ×3 (02:26→15:40)
[2019-08-12] MEDS: ALUMINUM/MAG/SIMETHICONE 30 ML UDC PO PRN (03:26)
[2019-08-12] MEDS ORDERED: LORazepam 0.5MG TABLET ONE (05:06)
[2019-08-12] MEDS: LORazepam 2 MG/ML, 1ML IV PRN ×2 (05:08→09:31)
[2019-08-12 06:52] VITALS: BP 164/92
[2019-08-12] MEDS: TAMSULOSIN 0.4 MG CAP.ER.24H PO SCH (08:11)
[2019-08-12] MEDS: HYDROCHLOROTHIAZIDE 12.5 MG CAPSULE PO SCH (08:11)
[2019-08-12] MEDS: LISINOPRIL 10 MG TABLET PO SCH (08:12)
[2019-08-12] MEDS: FAMOTIDINE 20 MG TABLET PO SCH (08:12)
[2019-08-12] MEDS: methylPREDNISolone SOD SUCC 40 MG/ML IVPush SCH (08:12)
[2019-08-12] MEDS: SERTRALINE 100MG TABLET PO SCH (08:12)
[2019-08-12] MEDS: BUDESONIDE 0.5 MG/2 ML INHA INH SCH (09:17)
[2019-08-12 09:26] LABS: ANION GAP 6 mmol/L (5-15); CALCIUM 9.2 mg/dL (8.5-10.1); CHLORIDE 97 mmol/L (98-107); CREATININE 0.67 mg/dL (0.7-1.3)
[2019-08-12 09:27] LABS: ALANINE AMINOTRANSFERASE 73 U/L (12-78); ALBUMIN 3.3 g/dL (3.4-5.0)
[2019-08-12 09:29] LABS: ALKALINE PHOSPHATASE 117 U/L (45-117); BILIRUBIN,TOTAL 0.8 mg/dL (0.2-1.0); TOTAL PROTEIN 7.1 g/dL (6.4-8.2)
[2019-08-12 10:22] LABS: BASOPHILS # (AUTO) 0.02 x10^3/uL (0-0.1); BASOPHILS % (AUTO) 0 % (0-1); EOSINOPHILS # (AUTO) 0.01 x10^3/uL (0-0.4); EOSINOPHILS % (AUTO) 0 % (1-7); LYMPHOCYTES # (AUTO) 1.49 x10^3/uL (1-3.4); LYMPHOCYTES % (AUTO) 16 % (22-44); MD SCAN; MEAN CORPUSCULAR VOLUME 93.9 fL (81-97); MEAN PLATELET VOLUME 11.5 fL (7.4-10.4); MONOCYTES # (AUTO) 0.53 x10^3/uL (0.2-0.8); MONOCYTES % (AUTO) 6 % (2-9); NEUTROPHILS # (AUTO) 7.21 x10^3/uL (1.8-6.8); NEUTROPHILS % (AUTO) 78 % (42-75); PLATELET COUNT 114 x10^3/uL (130-400); RED BLOOD COUNT 4.12 x10^6/uL (4.38-5.82)
[2019-08-12 13:00] VITALS: BP 111/83
[2019-08-12] MEDS ORDERED: OMEPRAZOLE 20 MG CAPSULE.DR PO SCH (15:30)
[2019-08-12] MEDS ORDERED: PRED20TA PO (15:45)
[2019-08-12] MEDS: MAGNESIUM SULFATE 2 GM, THIAMINE 200 MG, MVI ADULT 10 ML, FOLIC ACID 1 MG in D5%-0.9% N... IV SCH (15:46)
== END 2019-08-12 16:41 | disposition home or self-care (01) | DRG 391 ==
LOC: ED 12:45 → EDIP 15:10 → 4WST 16:48
PROVIDERS: ADMIT Family Medicine; ATTEND Internal Medicine
DX: K29.20 Alcoholic gastritis without bleeding (principal); J96.21 Acute and chronic respiratory failure with hypoxia; F10.239 Alcohol dependence with withdrawal, unspecified; J44.1 Chronic obstructive pulmonary disease with (acute) exacerbation; D69.59 Other secondary thrombocytopenia; E87.6 Hypokalemia; F32.9 Major depressive disorder, single episode, unspecified; I10 Essential (primary) hypertension; I48.91 Unspecified atrial fibrillation; K70.9 Alcoholic liver disease, unspecified; R74.0 Nonspecific elevation of levels of transaminase and lactic acid dehydrogenase [LDH]; N40.0 Benign prostatic hyperplasia without lower urinary tract symptoms; Z99.81 Dependence on supplemental oxygen
CPT/HCPCS: 36415; 96372; 96374; 96375; 99285; J3490; J7042; J7626; 71045; 76700; 80048; 80053; 80307; 83735; 83880; 84100; 84484; 85025; 93005; 94640; G0378; J1650; J2405; J2550; J3411; J3475; J3480; J2060; J2920; J7030; J7040